=== PATIENT | male | born 1960 | race Caucasian/White ===

== ENCOUNTER 2017-10-04 11:02 | Emergency (ER) | payer MEDICAID, OTHER ==
[~2017-10-04] VITALS: Ht 165.1 cm; Wt 79.4 kg
[~2017-10-04 11:02] MED LIST: CIPROFLOXACIN500 M2 ORAL; NORCO 10-325 T1 EACH ORAL; NORCO 5-325 TA1 EACH ORAL
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
[2017-10-04] MEDS ORDERED: Morphine Sulfate 4mg/ml Inj IVP ONE ×2 (11:30→14:45)
--- NOTE | 2017-10-04 12:20 | Diagnostic Imaging Report ---
Indication: Dyspnea Technique: XRAY Chest 1v Comparison: 11/12/2008 Findings: Cardiomegaly. Mediastinal contours are sharp. There is linear opacity in the left lung peripherally. This likely represents atelectasis or scarring. No pleural effusion or pneumothorax. No acute osseous abnormality is seen. Impression: Linear opacity in the left midlung likely represents atelectasis or scarring. Correlate clinically to exclude the remote possibility of developing infectious infiltrate. Follow-up exam recommended as clinically indicated. Cardiomegaly.
[2017-10-04 13:03] LABS: MEAN CORPUSCULAR HEMOGLOBIN 27.9 PG (27.0-31.0); MEAN CORPUSCULAR HGB CONC 30.8 G/DL (32.0-36.0); MEAN CORPUSCULAR VOLUME 90 FL (80-99); MEAN PLATELET VOLUME 8.8 FL (6.5-10.1); PLATELET COUNT 110 K/UL (150-450); RED BLOOD COUNT 3.15 M/UL (4.70-6.10); RED CELL DISTRIBUTION WIDTH 17.4 % (11.6-14.8); WHITE BLOOD COUNT 17.1 K/UL (4.8-10.8)
[2017-10-04 13:17] LABS: INR 1.2 (0.9-1.1); PROTHROMBIN TIME 13.1 SEC (9.30-11.50)
[2017-10-04 13:24] LABS: ANION GAP 12 mmol/L (5-15); CALCIUM 6.7 MG/DL (8.5-10.1); CARBON DIOXIDE 24 MMOL/L (21-32); CHLORIDE 102 MMOL/L (98-107); CREATININE 4.2 MG/DL (0.55-1.30); GLOMERULAR FILTRATION RATE 14.6 mL/min (>60); POTASSIUM 4.2 MMOL/L (3.5-5.1); SODIUM 138 MMOL/L (136-145)
[2017-10-04 13:27] LABS: ANISOCYTOSIS 1+; BAND NEUTROPHILS % (MANUAL) 0 % (0-8); BASOPHILS % (MANUAL) 0 % (0-2); EOSINOPHILS % (MANUAL) 0 % (0-3); HYPOCHROMASIA 2+; LYMPHOCYTES % (MANUAL) 4 % (20-45); NEUTROPHILS % (MANUAL) 93 % (45-75); PLATELET ESTIMATE DECREASED; PLATELET MORPHOLOGY NORMAL; TOTAL CELLS COUNTED 100
[2017-10-04 13:29] VITALS: BP 116/79
[2017-10-04] MEDS ORDERED: cefTRIAXone 1 GM in NS 55 ML IVPB ONE (13:30)
[2017-10-04 13:31] LABS: ALANINE AMINOTRANSFERASE 33 U/L (12-78); ALBUMIN/GLOBULIN RATIO 0.6 (1.0-2.7); ASPARTATE AMINO TRANSFERASE 28 U/L (15-37); CKMB 5.7 NG/ML (0.0-3.6); LIPASE 565 U/L (73-393); TOTAL PROTEIN 6.2 G/DL (6.4-8.2)
[2017-10-04 14:23] LABS: APPEARANCE,URINE CLOUDY; KETONES,URINE NEGATIVE (NEGATIVE); LEUKOCYTE ESTERASE ,URINE 3+ (NEGATIVE); NITRITE,URINE NEGATIVE (NEGATIVE); PH,URINE 6 (4.5-8.0); PROTEIN,URINE 3+ (NEGATIVE); UROBILINOGEN,URINE NORMAL MG/DL (0.0-1.0)
[2017-10-04 14:27] VITALS: BP 111/82
[2017-10-04] MEDS ORDERED: Calcium Gluconate 10% 1 GM in NS 110 ML IVPB ONE (14:30)
[2017-10-04] MEDS ORDERED: Calcium Gluconate 1gm/10ml vial ONE (14:37)
[2017-10-04 14:45] LABS: BACTERIA,URINE MANY /HPF; SQUAMOUS EPITHELIAL CELL,UR OCCASIONAL /LPF (NONE/OCC); WBC,URINE TNTC /HPF (0 - 0); YEAST,URINE MANY /HPF
[2017-10-04 16:30] VITALS: BP 106/61
[2017-10-04] MEDS ORDERED: ADVAIR 100-501 EACH INH (17:06)
[2017-10-04] MEDS ORDERED: ALBUTEROL SULF8.5 GM INH (17:06)
[2017-10-04] MEDS ORDERED: GABAPENTIN300 MG ORAL (17:06)
[2017-10-04] MEDS ORDERED: BUSPIRONE HCL5 M1 ORAL (17:06)
[2017-10-04] MEDS ORDERED: METOPROLOL TART25 MG ORAL (17:06)
[2017-10-04 18:00] VITALS: BP 98/67
[2017-10-04 19:09] VITALS: BP 98/67
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
--- NOTE | 2017-10-05 19:16 | Cardiology Report ---
APPROVED REPORT EKG Measurement Heart [id number] Sinus tachycardia Anterior infarct, age undetermined Abnormal ECG
== END 2017-10-04 19:09 | disposition short-term general hospital (02) ==
LOC: EDBD 11:02 → EMR 11:15 → EDBEDREQ 11:32 → EMR 19:09
DX: R07.9 Chest pain, unspecified (principal); I12.9 Hypertensive chronic kidney disease with stage 1 through stage 4 chronic kidney disease, or unspecified chronic kidney disease; N18.9 Chronic kidney disease, unspecified; S20.219A Contusion of unspecified front wall of thorax, initial encounter; J18.9 Pneumonia, unspecified organism; S22.42XG Multiple fractures of ribs, left side, subsequent encounter for fracture with delayed healing; R18.8 Other ascites; M25.571 Pain in right ankle and joints of right foot; Z88.8 Allergy status to other drugs, medicaments and biological substances; V49.9XXA Car occupant (driver) (passenger) injured in unspecified traffic accident, initial encounter; Y93.9 Activity, unspecified; Y92.410 Unspecified street and highway as the place of occurrence of the external cause; J44.9 Chronic obstructive pulmonary disease, unspecified; Z99.2 Dependence on renal dialysis; R09.02 Hypoxemia; J98.11 Atelectasis
CPT/HCPCS: 36415; 71010; 71250; 73630; 80053; 81003; 82330; 82550; 82553; 83605; 83690; 83880; 84484; 85007; 85025; 85610; 85730; 87040; 87086; 87181; 93005; 96365; 96366; 96375; 96376; 99285; J0610; J0696; J2270; J2405